=== PATIENT | female | born 1985 | race Caucasian/White ===

== ENCOUNTER 2021-02-05 06:03 | Emergency (ER) | payer OTHER ==
[~2021-02-05] VITALS: Ht 175.3 cm; Wt 140.6 kg
[2021-02-05 06:40] LABS: BASOPHIL 0.3 % (0-2); EOSINOPHIL 2.6 % (0-5); HGB 11.2 g/dl (12.5-16.0); LYMPHOCYTE 25.7 % (15-48); MCH 27.5 pg (25.0-31.0); MONOCYTE 5.3 % (0-12); MPV 9.4 fL (6.0-9.5); NEUTROPHIL 65.6 % (41-80); NRBC 0; PLT 303 K/uL (150-400); RBC 4.07 M/uL (4.20-5.40); WBC 9.8 K/uL (4.0-10.5)
[2021-02-05 07:08] LABS: ALBUMIN 3.4 g/dL (3.4-5.0); BILIRUBIN - TOTAL 0.3 mg/dL (0.2-1.0); MAGNESIUM 1.9 mg/dL (1.8-2.4); PHOSPHORUS 4.7 mg/dL (2.6-4.7); POTASSIUM 3.6 mmol/L (3.5-5.1); TOTAL PROTEIN 7.4 g/dL (6.4-8.2)
[2021-02-05] MEDS ORDERED: ROCALTROL 0.0.25 MCG PO (08:27)
== END 2021-02-05 08:50 | disposition home or self-care (01) ==
LOC: FER 06:03
PROVIDERS: Emergency Medicine
DX: E83.51 Hypocalcemia (principal)
CPT/HCPCS: 36415; 80053; 83735; 84100; 85025; 93005; J0610; J7050